=== PATIENT | female | born 1980 | race Hispanic/Latino ===

== ENCOUNTER 2018-04-21 08:37 | Day surgery (SDC) | payer BC ==
[2015-11-24 20:24] VITALS: BMI 25.8
[2018-04-21] MEDS ORDERED: Propofol 10 mg/ml Inj (20 ML) ONE ×2 (11:24→11:45)
[2018-04-21] MEDS ORDERED: Midazolam 2 MG/2 ML VIAL ONE ×2 (11:24→11:38)
[2018-04-21 12:36] VITALS: TEMP 97.4; O2SAT 100
[2018-04-21 13:23] VITALS: BP 115/70; PULSE 58; RESP 17
== END 2018-04-21 13:15 | disposition home or self-care (01) ==
LOC: C.ENDO 08:37
PROVIDERS: ATTEND Internal Medicine Gastroenterology
DX: K25.9 Gastric ulcer, unspecified as acute or chronic, without hemorrhage or perforation (principal); K62.1 Rectal polyp; K29.70 Gastritis, unspecified, without bleeding; R10.13 Epigastric pain; D64.9 Anemia, unspecified; K31.9 Disease of stomach and duodenum, unspecified; K64.1 Second degree hemorrhoids
CPT/HCPCS: 43239; 45384; 82948; 84703; 88305; J1885; J2250; J2704